=== PATIENT | female | born 1995 | race Caucasian/White ===

== ENCOUNTER → 2016-11-07 | Outpatient (CLI) | payer BC, OTHER | LOC: FIMAGING 15:11 | PROVIDERS: ATTEND Obstetrics & Gynecology | DX: N83.201 Unspecified ovarian cyst, right side (principal) ==

== ENCOUNTER 2017-06-23 09:20 | Emergency (ER) | payer OTHER ==
[2017-06-23 09:29] VITALS: O2SAT 100
--- NOTE | 2017-06-23 09:30 | EDPHY ---
H & P Stated Complaint: R lower quad pain, nausea, bloating x 2 days, dysuria Time Seen by Provider: 06/23/17 09:29 - Personal History LMP (Females 10-55): IUD In Place Current Tetanus/Diphtheria Vaccine: Unsure Current Tetanus Diphtheria and Acellular Pertussis (TDAP): Unsure - Medical/Surgical History Hx Asthma: No Hx Chronic Respiratory Disease: No Hx Diabetes: No Hx Cardiac Disease: No Hx Renal Disease: No Hx Cirrhosis: No Hx Alcoholism: No Hx HIV/AIDS: No Hx Splenectomy or Spleen Trauma: No Other PMH: frequent sinus infections, tonsillectomy, kidney reflux, ovarian cysts - Social History Smoking Status: Never smoked Constitutional: Initial Vital Signs Temperature (C) 37.2 C 06/23/17 09:25 Heart Rate 72 06/23/17 09:25 Respiratory Rate 16 06/23/17 09:25 Blood Pressure 116/88 H 06/23/17 09:25 O2 Sat (%) 100 06/23/17 09:25 O2 Delivery Mode Room Air Allergies/Adverse Reactions: No Known Allergies Allergy (Verified 06/25/15 20:27) Home Medications: Medication Instructions Recorded Ciprofloxacin [Cipro] 500 mg PO BID #8 tab 06/25/15 Medical Decision Making - Diagnostics Imaging Results: Imaging Impressions Abdomen Ultrasound 06/23/17 09:59 Impression: Appendix is not identified. Findings and recommendations discussed with Emergency Department physician, Dr. Peter Adair at 1126 hours on June 23, 2017. Final report concurs with initial preliminary interpretation. Pelvic/Renal Ultrasound 06/23/17 09:59 Impression: 1. Collapsing cyst in the right ovary is associated with free fluid and may be the source of the patient's pain. 2. Limited Abdominal Sonogram History: Right lower quadrant pain, possible appendicitis Technique: Graded compression with a high frequency linear transducer. Findings: A normal appendix is not identified. There is no pericecal free fluid or loculated fluid. Gas-filled loops of bowel are identified. Impression: No indirect sonographic evidence for appendicitis. . Results both exams discussed with Dr. Adair at 11:37 AM. Imaging: Discussed imaging studies w/ level designer Radiologist, I viewed and interpreted images myself ED Course/Re-evaluation: CHIEF COMPLAINT: Abdominal pain HISTORY OF PRESENT ILLNESS: The patient is a 22 y/o female with a history of ovarian cysts complaining of abdominal pain onset yesterday. Three days ago she noticed abdominal bloating with nausea. Yesterday she developed acute, sharp, LLQ pain shortly after urinating. Her pain was initially [id number] and she was unable to find a position of comfort. She eventually walked across campus to class and her pain spread across her lower abdomen. Pain is aggravated by any jarring of her abdomen like when stepping or riding in a car. While sitting in class the pain then radiated into her RLQ and is now most severe on the right side. Pain has been constant and continued this morning with some radiation into her right thigh. She currently has associated nausea, but no vomiting. She denies urinary symptoms, diarrhea, abnormal vaginal discharge, fever, loss of appetite,cough. She had mild constipation yesterday and did note a small amount of red blood on the toilet paper after a bowel movement. No regular periods due to Mirena IUD. REVIEW OF SYSTEMS: A 10 point review of systems was performed and is negative with the exception of the elements mentioned in the history of present illness. PHYSICAL EXAM: HR, BP, O2 Sat, RR. Temp noted General Appearance: Alert, well hydrated, appropriate, and non-toxic appearing. Head: Atraumatic without scalp tenderness or obvious injury Eyes: Pupils equal, round, reactive to light and accommodation, EOMI, no trauma , no injection. Nose: Atraumatic, no rhinorrhea, clear. Throat: Mucus membranes moist. Neck: Supple Respiratory: No retractions, no distress, no wheezes, and no accessory muscle use. Lungs are clear to auscultation bilaterally. Cardiovascular: Regular rate and rhythm, no murmurs, rubs, or gallops. Good capillary refill all extremities. Gastrointestinal: Abdomen is soft, lower abdominal tenderness RLQ worse than LLQ with radiation to periumbilical region, non-distended, no masses, no rebound , no guarding, positive peritoneal signs. Musculoskeletal: Normal active ROM of all extremities, atraumatic. Neurological: Alert, appropriate, and interactive. The patient has non-focal cranial nerves, motor, sensory, and cerebellar exam. Skin: No rashes, good turgor, no nodules on palpation. Past medical history: Ovarian cyst, kidney reflux, Mirena IUD in place Past surgical history: Tonsillectomy Family history: Noncontributory Social history: [employer] student. Mother and brother at bedside. DIAGNOSTICS/PROCEDURES/CRITICAL CARE TIME: Abdominal US: nonvisualization of appendix Pelvic US: involuting right ovarian cyst with free fluid indicating recent rupture, small cyst on left DIFFERENTIAL DIAGNOSIS: The differential diagnosis for the patient's abdominal pain included but was not limited to ovarian cyst, pelvic inflammatory disease, ovarian torsion, urinary tract infection, ectopic , cholecystitis, and appendicitis. MEDICAL DECISION MAKING: This is a normally healthy 22 y/o female with a history of ovarian cysts who presents with a 1-day history of worsening lower abdominal pain and nausea now localized to her RLQ. She has lower abdominal tenderness worst in RLQ with positive peritoneal signs. Presentation concerning for appendicitis, ovarian etiology also likely. Plan for IV, labs, UA, and pelvic and abdominal US. 1L IV NS and 4mg IV Zofran ordered. She declines pain medication. Abdominal US shows nonvisualization of appendix with no secondary signs of appendicitis. Pelvic US shows involuting right ovarian cyst with free fluid indicating recent rupture. Reevaluated patient and discussed work up with her and her family. Labs are all normal. No fever or elevated WBC decreasing concern for appendicitis. She will be discharged with standard ovarian cyst care and follow up instructions. Recommended high dose ibuprofen for pain. She understands she needs to follow up with her OBGYN soon. Return precautions discussed. - Data Points Laboratory Results: Laboratory Results 06/23/17 10:15 06/23/17 10:15 06/23/17 06/23/17 06/23/17 10:15 10:15 10:15 WBC 6.64 10^3/uL 10^3/uL (3.80-9.50) RBC 4.99 10^6/uL 10^6/uL (4.18-5.33) Hgb 15.4 g/dL g/dL (12.6-16.3) Hct 45.6 % % (38.0-47.0) MCV 91.4 fL fL (81.5-99.8) MCH 30.9 pg pg (27.9-34.1) MCHC 33.8 g/dL g/dL (32.4-36.7) RDW 11.9 % % (11.5-15.2) Plt Count 260 10^3/uL 10^3/uL (150-400) MPV 9.3 fL fL (8.7-11.7) Neut % (Auto) 67.2 % % (39.3-74.2) Lymph % (Auto) 20.5 % % (15.0-45.0) [place] % (Auto) 8.3 % % (4.5-13.0) Eos % (Auto) 2.4 % % (0.6-7.6) Baso % (Auto) 1.1 % % (0.3-1.7) Nucleat RBC Rel Count 0.0 % % (0.0-0.2) Absolute Neuts (auto) 4.47 10^3/uL 10^3/uL (1.70-6.50) Absolute Lymphs (auto) 1.36 10^3/uL 10^3/uL (1.00-3.00) Absolute Monos (auto) 0.55 10^3/uL 10^3/uL (0.30-0.80) Absolute Eos (auto) 0.16 10^3/uL 10^3/uL (0.03-0.40) Absolute Basos (auto) 0.07 10^3/uL 10^3/uL (0.02-0.10) Absolute Nucleated RBC 0.00 10^3/uL 10^3/uL (0-0.01) Immature Gran % 0.5 % % (0.0-1.1) Immature Gran # 0.03 10^3/uL 10^3/uL (0.00-0.10) Sodium 140 mEq/L mEq/L (135-145) Potassium 4.2 mEq/L mEq/L (3.5-5.2) Chloride 104 mEq/L mEq/L (97-110) Carbon Dioxide 22 mEq/l mEq/l (22-31) Anion Gap 14 mEq/L mEq/L (8-16) BUN 12 mg/dL mg/dL (7-23) Creatinine 0.7 mg/dL mg/dL (0.6-1.0) Estimated GFR > 60 Glucose 87 mg/dL mg/dL (70-100) Calcium 9.6 mg/dL mg/dL (8.5-10.4) Beta HCG, Qual NEGATIVE Urine Color Urine Appearance Urine pH Ur Specific [place] Urine Protein Urine Ketones Urine Blood Urine Nitrate Urine Bilirubin Urine Urobilinogen Ur Leukocyte Esterase Urine Glucose 06/23/17 09:43 WBC RBC Hgb Hct MCV MCH MCHC RDW Plt Count MPV Neut % (Auto) Lymph % (Auto) [place] % (Auto) Eos % (Auto) Baso % (Auto) Nucleat RBC Rel Count Absolute Neuts (auto) Absolute Lymphs (auto) Absolute Monos (auto) Absolute Eos (auto) Absolute Basos (auto) Absolute Nucleated RBC Immature Gran % Immature Gran # Sodium Potassium Chloride Carbon Dioxide Anion Gap BUN Creatinine Estimated GFR Glucose Calcium Beta HCG, Qual Urine Color YELLOW Urine Appearance CLEAR Urine pH 7.0 (5.0-7.5) Ur Specific [place] 1.019 (1.002-1.030) Urine Protein NEGATIVE (NEGATIVE) Urine Ketones NEGATIVE (NEGATIVE) Urine Blood NEGATIVE (NEGATIVE) Urine Nitrate NEGATIVE (NEGATIVE) Urine Bilirubin NEGATIVE (NEGATIVE) Urine Urobilinogen NEGATIVE EU EU (0.2-1.0) Ur Leukocyte Esterase NEGATIVE (NEGATIVE) Urine Glucose NEGATIVE (NEGATIVE) Medications Given: Discontinued Medications Sodium Chloride (Ns) 1,000 mls @ 0 mls/hr IV ONCE ONE PRN Reason: Wide Open Stop: 06/23/17 10:32 Last Admin: 06/23/17 10:39 Dose: 1,000 mls Ondansetron HCl (Zofran) 4 mg IVP EDNOW ONE Stop: 06/23/17 10:32 Last Admin: 06/23/17 10:39 Dose: 4 mg Departure - Departure Disposition: Home, Routine, Self-Care Clinical Impression: Ovarian cyst rupture, right Condition: Good Instructions: Ovarian Cyst (ED), Ruptured Ovarian Cyst (ED) Additional Instructions: 1. Follow up with your OBGYN in the next week. 2. Use ibuprofen and Tylenol as needed for pain. You can try a heating pack as well. 3. Use Vicodin as prescribed when needed for severe pain. This can make you sleepy. Do not use while driving and watch your total acetaminophen dosing carefully. 4. Return to the ED for severe pain, uncontrollable vomiting or fever, or other worsening of condition. Adult Pain & Fever Control: We recommend Acetaminophen (Tylenol) and Ibuprofen (Motrin,Advil) for pain and fever control. When fever is high or pain severe, both drugs can be used at the same time, but at different intervals. Please note the time differences. Your dose is: Acetaminophen 650mg every 4 to 6 hours Ibuprofen 800mg every 6-8 hours with food Note: do not take Acetaminophen with Hydrocodone (Vicodin, Lortab) or Oxycodone (Percocet). These medications also contain Acetaminophen. No more than 3000mg of Acetaminophen should be taken in 24 hours (for an adult). Referrals: Lisa Payne MD [Primary Care Provider] - As per Instructions Karol Ayoub MD [Medical Doctor] - As per Instructions Report Scribed for: Peter Adair Report Scribed by: Claudia Almaguer Date of Report: 06/23/17 Time of Report: 11:33
[2017-06-23 10:21] LABS: PLATELET COUNT 260 10^3/uL (150-400)
[2017-06-23] MEDS ORDERED: ONDANSETRON 4 MG/2 ML VIAL IVP ONE (10:31)
[2017-06-23] MEDS ORDERED: NS 1,000 ML IV ONE (10:31)
[2017-06-23 12:30] VITALS: BP 97/67; PULSE 74; RESP 18; TEMP 98.2
== END 2017-06-23 12:28 | disposition home or self-care (01) ==
DX: N83.201 Unspecified ovarian cyst, right side (principal); E86.9 Volume depletion, unspecified
CPT/HCPCS: 96374; J2405